=== PATIENT | male | born 1965 | race Caucasian/White ===

== ENCOUNTER 2021-08-29 17:30 | Inpatient (IN) ==
[2021-08-30] MEDS ORDERED: *HR* Dextrose 50 % in Water (Syg) 50 ML SYRINGE IVP PRN (17:28)
[2021-08-30] MEDS ORDERED: Dextrose Gel 15 GM/37.5 ML TUBE PO PRN ×2 (17:28)
[2021-08-30] MEDS ORDERED: D5% in Water 1,000 ML IVC PRN (17:28)
[2021-08-30] MEDS ORDERED: Benzonatate 100 MG CAPSULE PO PRN (17:29)
[2021-08-30] MEDS ORDERED: Ondansetron ODT 4 MG TAB.RAPDIS SL PRN (17:35)
[2021-08-30] MEDS ORDERED: Acetaminophen 325 MG TABLET PO PRN (17:35)
[2021-08-30] MEDS ORDERED: Warfarin perPT PO PRN (18:00)
[2021-08-30 18:44] LABS: INR 1.3
[2021-08-30] MEDS ORDERED: *HR* Warfarin 0.5 MG TABLET PO ONE (19:41)
[2021-08-30] MEDS: Cholecalciferol (D-3) 1,000 UNIT (25MCG) TABLET PO SCH (20:09)
[2021-08-30] MEDS ORDERED: Insulin DETEMIR 100 UNIT/ML per UNIT SUBQ ONE (21:00)
[2021-08-30] MEDS: Insulin LISPRO 300 UNITS/3 ML VIAL SUBQ SCH (22:27)
[2021-08-30] MEDS: carvediloL 25 MG TABLET PO SCH (22:27)
[2021-08-31 06:19] LABS: Basophils # 0.2 K/mcL (0.0-0.2); Basophils % 0.8 %; Eosinophils # 0.3 K/mcL (0.0-0.6); Eosinophils % 1.4 %; Hematocrit 28.5 % (37.5-50.1); Hemoglobin 8.8 g/dL (12.9-16.9); Lymphocytes # 2.6 K/mcL (0.6-4.6); Lymphocytes % 13.7 %; Mean Corpuscular HGB Conc 30.9 g/dL (31.6-35.5); Mean Corpuscular Hemoglobin 27.4 pg (28.0-33.3); Mean Corpuscular Volume 88.8 fL (83.0-100.0); Mean Platelet Volume 12.7 fL (9.4-12.4); Monocytes # 1.7 K/mcL (0.0-1.3); Monocytes % 8.8 %; Neutrophils # 13.1 K/mcL (1.6-8.9); Nucleated Red Blood Cells 0.3 /100 WBC (0); Platelet Count 156 K/mcL (140-400); Red Blood Count 3.21 M/mcL (4.19-5.50); Red Cell Distribution Width 16.1 % (11.5-14.5); Segmented Neutrophils % 68.3 %; White Blood Count 19.2 K/mcL (4.3-11.1)
[2021-08-31 06:39] LABS: INR 1.2; Prothrombin Time 13.2 Seconds (9.4-12.1)
[2021-08-31 07:04] LABS: Calcium 7.9 mg/dL (8.6-10.3); Potassium 4.6 mEq/L (3.5-5.1)
[2021-08-31] MEDS: Insulin LISPRO 300 UNITS/3 ML VIAL SUBQ SCH ×4 (08:18→20:46)
[2021-08-31] MEDS ORDERED: Insulin DETEMIR 100 UNIT/ML X5UNITS SUBQ SCH ×2 (09:00→21:00)
[2021-08-31] MEDS: carvediloL 25 MG TABLET PO SCH (09:19)
[2021-08-31] MEDS: Lactobacillus 1 EACH CAP.SPRINK PO SCH (09:21)
[2021-08-31] MEDS: amLODIPine 5 MG TABLET PO SCH (09:22)
[2021-08-31] MEDS: Cholecalciferol (D-3) 1,000 UNIT (25MCG) TABLET PO SCH ×2 (09:22→20:51)
[2021-08-31] MEDS: Cyanocobalamin (B-12) 1,000 MCG TABLET PO SCH (09:23)
[2021-08-31] MEDS ORDERED: *HR* Warfarin 2 MG TABLET PO ONE (18:00)
[2021-09-01] MEDS: Lactobacillus 1 EACH CAP.SPRINK PO SCH (08:54)
[2021-09-01] MEDS: Insulin LISPRO 300 UNITS/3 ML VIAL SUBQ SCH ×4 (08:54→19:47)
[2021-09-01] MEDS: amLODIPine 5 MG TABLET PO SCH (08:54)
[2021-09-01] MEDS: Cyanocobalamin (B-12) 1,000 MCG TABLET PO SCH (08:55)
[2021-09-01] MEDS: Cholecalciferol (D-3) 1,000 UNIT (25MCG) TABLET PO SCH ×2 (08:55→21:30)
[2021-09-01 11:20] LABS: INR 1.2; Prothrombin Time 12.9 Seconds (9.4-12.1)
[2021-09-01] MEDS ORDERED: *HR* Warfarin 2.5 MG TABLET PO ONE (18:00)
[2021-09-02 08:12] LABS: INR 1.2; Prothrombin Time 13.1 Seconds (9.4-12.1)
[2021-09-02] MEDS: Cholecalciferol (D-3) 1,000 UNIT (25MCG) TABLET PO SCH ×2 (08:23→20:22)
[2021-09-02] MEDS: Lactobacillus 1 EACH CAP.SPRINK PO SCH (08:23)
[2021-09-02] MEDS: Cyanocobalamin (B-12) 1,000 MCG TABLET PO SCH (08:23)
[2021-09-02] MEDS: amLODIPine 5 MG TABLET PO SCH (08:24)
[2021-09-02] MEDS: Insulin LISPRO 300 UNITS/3 ML VIAL SUBQ SCH ×4 (08:31→20:22)
[2021-09-02 09:55] LABS: BUN/Creatinine Ratio 9 (6-26); Blood Urea Nitrogen 43 mg/dL (6-20); Calcium 7.9 mg/dL (8.6-10.3); Carbon Dioxide 27 mEq/L (23-29); Glucose 170 mg/dL (70-105); Magnesium 1.9 mg/dL (1.6-2.6); eGFR For African Americans 15 (> 60); eGFR For Non-African Americans 12 (> 60)
[2021-09-02 10:10] LABS: Hematocrit 26.6 % (37.5-50.1); Hemoglobin 8.2 g/dL (12.9-16.9); Mean Corpuscular HGB Conc 30.8 g/dL (31.6-35.5); Mean Corpuscular Volume 90.8 fL (83.0-100.0); Mean Platelet Volume 12.7 fL (9.4-12.4); Platelet Count 162 K/mcL (140-400); Red Blood Count 2.93 M/mcL (4.19-5.50); Red Cell Distribution Width 16.5 % (11.5-14.5); White Blood Count 11.2 K/mcL (4.3-11.1)
[2021-09-02 11:28] LABS: VBG Chloride 103 mEq/L (98-107)
[2021-09-02] MEDS ORDERED: *HR* Warfarin 3 MG TABLET PO ONE (18:00)
[2021-09-03] MEDS: Cyanocobalamin (B-12) 1,000 MCG TABLET PO SCH (07:15)
[2021-09-03] MEDS: amLODIPine 5 MG TABLET PO SCH (07:16)
[2021-09-03] MEDS: Lactobacillus 1 EACH CAP.SPRINK PO SCH (07:16)
[2021-09-03] MEDS: Cholecalciferol (D-3) 1,000 UNIT (25MCG) TABLET PO SCH ×2 (07:16→21:37)
[2021-09-03] MEDS: Insulin LISPRO 300 UNITS/3 ML VIAL SUBQ SCH ×4 (07:21→21:36)
[2021-09-03 08:15] LABS: INR 1.2
[2021-09-03] MEDS ORDERED: *HR* Warfarin 2 MG TABLET PO ONE (18:00)
[2021-09-04 06:15] LABS: INR 1.2; Prothrombin Time 13.7 Seconds (9.4-12.1)
[2021-09-04] MEDS: Insulin LISPRO 300 UNITS/3 ML VIAL SUBQ SCH ×4 (11:32→23:22)
[2021-09-04] MEDS: Lactobacillus 1 EACH CAP.SPRINK PO SCH (11:33)
[2021-09-04] MEDS: amLODIPine 5 MG TABLET PO SCH (11:33)
[2021-09-04] MEDS: Cyanocobalamin (B-12) 1,000 MCG TABLET PO SCH (11:34)
[2021-09-04] MEDS: Cholecalciferol (D-3) 1,000 UNIT (25MCG) TABLET PO SCH ×2 (11:34→20:52)
[2021-09-04] MEDS ORDERED: *HR* Warfarin 5 MG TABLET PO ONE (18:00)
[2021-09-05 08:16] LABS: INR 1.2; Prothrombin Time 13.5 Seconds (9.4-12.1)
[2021-09-05] MEDS: Cyanocobalamin (B-12) 1,000 MCG TABLET PO SCH (09:33)
[2021-09-05] MEDS: Cholecalciferol (D-3) 1,000 UNIT (25MCG) TABLET PO SCH ×2 (09:33→20:39)
[2021-09-05] MEDS: Lactobacillus 1 EACH CAP.SPRINK PO SCH (09:33)
[2021-09-05] MEDS: Insulin LISPRO 300 UNITS/3 ML VIAL SUBQ SCH ×4 (09:33→21:34)
[2021-09-05] MEDS: amLODIPine 5 MG TABLET PO SCH (09:33)
[2021-09-05] MEDS ORDERED: *HR* Warfarin 7.5 MG TABLET PO ONE (18:00)
[2021-09-06 12:14] LABS: INR 1.5; Prothrombin Time 16.9 Seconds (9.4-12.1)
[2021-09-06] MEDS: Insulin LISPRO 300 UNITS/3 ML VIAL SUBQ SCH ×4 (13:26→21:37)
[2021-09-06] MEDS: Lactobacillus 1 EACH CAP.SPRINK PO SCH (13:27)
[2021-09-06] MEDS: amLODIPine 5 MG TABLET PO SCH (13:27)
[2021-09-06] MEDS: Cyanocobalamin (B-12) 1,000 MCG TABLET PO SCH (13:28)
[2021-09-06] MEDS: Cholecalciferol (D-3) 1,000 UNIT (25MCG) TABLET PO SCH ×2 (13:28→21:37)
[2021-09-06] MEDS ORDERED: SODIUM ZIRCONIUM CYCLOSILICATE 5 GM POWD.PACK PO SCH (15:27)
[2021-09-06] MEDS ORDERED: *HR* Dextrose 50 % in Water (Syg) 50 ML SYRINGE IVP ONE (17:12)
[2021-09-06] MEDS ORDERED: Insulin Human Regular 10 UNIT in 0.9 % Sodium Chloride 10 ML IV ONE (17:12)
[2021-09-06] MEDS ORDERED: *HR* Warfarin 7.5 MG TABLET PO ONE (18:00)
[2021-09-07] MEDS ORDERED: *HR* Metoprolol 5 MG/5 ML VIAL IVP ONE ×2 (04:43→08:45)
[2021-09-07 05:09] LABS: Basophils # 0.1 K/mcL (0.0-0.2); Basophils % 0.7 %; Eosinophils # 0.3 K/mcL (0.0-0.6); Eosinophils % 3.7 %; Hematocrit 31.7 % (37.5-50.1); Hemoglobin 9.9 g/dL (12.9-16.9); Immature Granulocytes % 0.7 % (0-4); Lymphocytes # 2.5 K/mcL (0.6-4.6); Lymphocytes % 30.3 %; Mean Corpuscular HGB Conc 31.2 g/dL (31.6-35.5); Mean Corpuscular Hemoglobin 28.1 pg (28.0-33.3); Mean Corpuscular Volume 90.1 fL (83.0-100.0); Monocytes # 0.9 K/mcL (0.0-1.3); Monocytes % 10.9 %; Neutrophils # 4.4 K/mcL (1.6-8.9); Platelet Count 171 K/mcL (140-400); Red Blood Count 3.52 M/mcL (4.19-5.50); Red Cell Distribution Width 16.6 % (11.5-14.5); Segmented Neutrophils % 53.7 %; White Blood Count 8.1 K/mcL (4.3-11.1)
[2021-09-07 05:16] LABS: INR 1.9; Prothrombin Time 21.3 Seconds (9.4-12.1)
[2021-09-07 05:27] LABS: Calcium 8.9 mg/dL (8.6-10.3); Potassium 3.6 mEq/L (3.5-5.1)
[2021-09-07] MEDS: Lactobacillus 1 EACH CAP.SPRINK PO SCH (07:57)
[2021-09-07] MEDS: Cyanocobalamin (B-12) 1,000 MCG TABLET PO SCH (07:58)
[2021-09-07] MEDS: Cholecalciferol (D-3) 1,000 UNIT (25MCG) TABLET PO SCH ×2 (07:58→21:29)
[2021-09-07] MEDS: Insulin LISPRO 300 UNITS/3 ML VIAL SUBQ SCH ×4 (08:01→21:36)
[2021-09-07] MEDS ORDERED: *HR* Warfarin 3 MG TABLET PO ONE (18:00)
[2021-09-07] MEDS ORDERED: *HR* Metoprolol 5 MG/5 ML VIAL IVP PRN (18:00)
[2021-09-08] MEDS: Lactobacillus 1 EACH CAP.SPRINK PO SCH (07:29)
[2021-09-08] MEDS: Cholecalciferol (D-3) 1,000 UNIT (25MCG) TABLET PO SCH ×2 (07:31→20:48)
[2021-09-08] MEDS: Cyanocobalamin (B-12) 1,000 MCG TABLET PO SCH (07:31)
[2021-09-08] MEDS: Insulin LISPRO 300 UNITS/3 ML VIAL SUBQ SCH ×4 (07:41→20:41)
[2021-09-08 07:50] LABS: INR 2.4; Prothrombin Time 26.7 Seconds (9.4-12.1)
[2021-09-08] MEDS ORDERED: Calcium Acetate 667 MG CAPSULE PO PRN (15:11)
[2021-09-08] MEDS: Calcium Acetate 667 MG CAPSULE PO SCH (16:56)
[2021-09-08] MEDS ORDERED: *HR* Warfarin 3 MG TABLET PO ONE (18:00)
[2021-09-09 07:33] LABS: INR 2.6; Prothrombin Time 28.3 Seconds (9.4-12.1)
[2021-09-09] MEDS: Lactobacillus 1 EACH CAP.SPRINK PO SCH (08:14)
[2021-09-09] MEDS: Calcium Acetate 667 MG CAPSULE PO SCH ×3 (08:15→16:40)
[2021-09-09] MEDS: Cholecalciferol (D-3) 1,000 UNIT (25MCG) TABLET PO SCH ×2 (08:17→21:28)
[2021-09-09] MEDS: Cyanocobalamin (B-12) 1,000 MCG TABLET PO SCH (08:17)
[2021-09-09] MEDS: Insulin LISPRO 300 UNITS/3 ML VIAL SUBQ SCH ×4 (08:24→21:24)
[2021-09-09] MEDS ORDERED: *HR* Warfarin 3 MG TABLET PO ONE (18:00)
[2021-09-09] MEDS ORDERED: Insulin DETEMIR 100 UNIT/ML per UNIT SUBQ ONE (21:00)
[2021-09-10] MEDS: Insulin LISPRO 300 UNITS/3 ML VIAL SUBQ SCH ×2 (07:43→11:56)
[2021-09-10] MEDS: Cyanocobalamin (B-12) 1,000 MCG TABLET PO SCH (07:46)
[2021-09-10] MEDS: Calcium Acetate 667 MG CAPSULE PO SCH ×2 (07:47→11:55)
[2021-09-10] MEDS: Cholecalciferol (D-3) 1,000 UNIT (25MCG) TABLET PO SCH (07:48)
[2021-09-10] MEDS: Lactobacillus 1 EACH CAP.SPRINK PO SCH (07:49)
[2021-09-10 08:04] VITALS: BP 109/61; PULSE 87; RESP 17; TEMP 97.2; O2SAT 98
[2021-09-10 08:05] LABS: INR 2.5; Prothrombin Time 28.2 Seconds (9.4-12.1)
[2021-09-10] MEDS ORDERED: Insulin DETEMIR 100 UNIT/ML X5UNITS SUBQ SCH (09:00)
[2021-09-10] MEDS ORDERED: *HR* Warfarin 2 MG TABLET PO ONE (18:00)
== END 2021-09-10 13:34 | disposition home health service (06) | DRG 291 ==
LOC: INPPIK 08-30 17:50
PROVIDERS: ADMIT Internal Medicine; ATTEND Internal Medicine